=== PATIENT | male | born 1960 ===

== ENCOUNTER 2017-09-28 06:28 | Emergency (ER) | payer OTHER ==
[2017-09-28 06:53] VITALS: BP 143/103
--- NOTE | 2017-09-28 07:19 | EDM.PDOC ---
ED HPI GENERAL MEDICAL PROBLEM - General Chief Complaint: ENT Problem Stated Complaint: BLEEDING FROM RT EAR Time Seen by Provider: 09/28/17 07:02 Source of Information: Reports: Patient, Family (spouse) History Limitations: Reports: No Limitations - History of Present Illness INITIAL COMMENTS - FREE TEXT/NARRATIVE: Source of bleeding is unclear. He states he feels a fullness in his right ear but his hearing is normal. He states started bleeding in the middle the night and no at which way he laid he continued to have blood in his ear. For a while it did clog up with blood. Of note he is chronically anticoagulated with Coumadin because of artificial heart valve. Last INR reportedly was 6.3. He therefore stopped his Coumadin yesterday. Denies any bleeding from his gingiva or his nose or new genitourinary tract. States he may have scratched his ear canal. 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.) - Related Data Allergies Allergy/AdvReac Type Severity Reaction Status Date / Time No Known Allergies Allergy Verified 05/16/17 09:35 Home Meds: Home Meds Acetaminophen [Tylenol] 325 - 650 mg PO Q4HR PRN 04/15/17 [History] Albuterol [Proventil HFA] 2 puff INH Q4H 04/15/17 [History] Albuterol/Ipratropium [DuoNeb 3.0-0.5 MG/3 ML] 3 ml IH QID PRN 04/15/17 [History ] Aspirin [Halfprin] 81 mg PO DAILY 04/15/17 [History] Furosemide [Lasix] 40 mg PO DAILY 04/15/17 [History] Metoprolol Tartrate 25 mg PO BID 04/15/17 [History] Potassium Chloride [K-Tab ER] 1 tab PO DAILY 04/15/17 [History] Tiotropium [place] [Spiriva Respimat] 2 puff IH DAILY 04/15/17 [History] Warfarin Dosing [Coumadin Ask] 1 tab PO DAILY 04/15/17 [History] Past Medical History HEENT History: Reports: Impaired Vision Cardiovascular History: Reports: Heart Failure, Heart Murmur, Heart Valve Replacement, High Cholesterol, Hypertension, Other (See Below) Respiratory History: Reports: SOB, Other (See Below) Other Respiratory History: mold infection in lungs and had Hantavirus in 2016 Gastrointestinal History: Reports: Other (See Below) Other Gastrointestinal History: anal abcess, LLQ pain, c diff Genitourinary History: Reports: Renal Calculus 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 Musculoskeletal History: Reports: Back Pain, Chronic Neurological History: Reports: Neuropathy, Peripheral Psychiatric History: Reports: None, Other (See Below) Other Psychiatric History: malaise, fatigue Endocrine/Metabolic History: Reports: None Hematologic History: Reports: Anemia Immunologic History: Reports: None, Other (See Below) Other Immunologic History: hypokalemia Oncologic (Cancer) History: Reports: None Dermatologic History: Reports: None - Infectious Disease History Infectious Disease History: Reports: C-Difficile, Other (See Below) Other Infectious Disease History: hantavirus - Past Surgical History Head Surgeries/Procedures: Reports: None Cardiovascular Surgical History: Reports: None, Other (See Below) GI Surgical History: Reports: Hernia Repair/Other Endocrine Surgical History: Reports: None Musculoskeletal Surgical History: Reports: Arthroscopic Knee Oncologic Surgical History: Reports: None Dermatological Surgical History: Reports: None - Past Imaging History Past Imaging History: Reports: None Social & Family History - Family History Family Medical History: Noncontributory - Tobacco Use Smoking Status *Q: Never Smoker - Caffeine Use Caffeine Use: Reports: None - Living Situation & Occupation Occupation: Employed ED ROS ENT - Review of Systems Review Of Systems: See Below Constitutional: Reports: Malaise, Fatigue (Chronically). Denies: Fever, Chills HEENT: Reports: Ear Discharge (Bleeding from his right ear most of the night.). Denies: Ear Pain, Eye Discharge, Eye Pain, Glasses, Hearing Loss, Nosebleed, Nose Pain, Rhinitis, Sinus Problem, Throat Pain, Throat Swelling Respiratory: Reports: No Symptoms Cardiovascular: Reports: Blood Pressure Problem, Other (Chronically hypertensive has had an aortic valve replacement.). Denies: Chest Pain ED EXAM, ENT - Physical Exam Exam: See Below Exam Limited By: No Limitations General Appearance: Alert, WD/WN, No Apparent Distress Ears: Hearing Grossly Normal, Canal Blood (There is a fair amount of bright red blood up against the eardrum on the right side there is dried blood on the floor of the ear canal. No active source of bleeding is identified.). No: TM Bulging, TM Dullness, TM Erythema, TM Fluid Course - Vital Signs Last Recorded V/S: Last Vital Signs Temp 36.2 C 09/28/17 06:47 Pulse 85 09/28/17 06:47 Resp 18 09/28/17 06:47 BP 143/103 H 09/28/17 06:47 Pulse Ox 98 09/28/17 06:47 - Orders/Labs/Meds Labs: Laboratory Tests 09/28/17 Range/Units 07:05 PT 30.3 H (9.5-12.1) SECONDS INR 2.84 Meds: Medications Discontinued Medications Generic Name Dose Route Start Last Admin Trade Name Freq PRN Reason Stop Dose Admin Neomycin/Polymyxin/Hydrocortisone 2.5 ml 09/28/17 07:28 09/28/17 07:53 Cortisporin Otic Susp EARRT 09/28/17 07:29 2 drop ONETIME ONE Administration - Radiology Interpretation Free Text/Narrative:: 57-year-old male presents to the ED with bleeding from his right ear canal. The tympanic membrane appears intact however his covered with bright red blood. I cauterized the floor of the ear canal but which I believe to be the source of the bleeding with silver nitrate. I will irrigate the ear gently with some peroxide warm water and see if there is any further active bleeding source. Of note primary problem is he is on Coumadin last INR was 6.3. I Coumadin was placed on hold yesterday. It is to be left on hold today as well. Dr. Bell had ordered a PT/INR test which is not yet completed. - Re-Assessments/Exams Free Text/Narrative Re-Assessment/Exam: 09/28/17 07:29 on second look at there was a little more active bleeding from further up in the ear canal close to the tympanic membrane. I was able to reach in and cauterize this area with silver nitrate and has no further blood in the ear canal at the time of discharge. I'm going to place him on some Cortisporin optic drops 2 drops to the ear 3 times daily for the next 3 days to prevent any further infection of excoriated ear canal. Departure - Departure Time of Disposition: 07:30 Disposition: Home, Self-Care 01 Condition: Good Clinical Impression: Otitis externa hemorrhagica Qualifiers: Chronicity: acute Laterality: right Qualified Code(s): H60.321 - Hemorrhagic otitis externa, right ear - Discharge Information *PRESCRIPTION DRUG MONITORING PROGRAM REVIEWED*: Not Applicable *COPY OF PRESCRIPTION DRUG MONITORING REPORT IN PATIENT ELIZ: Not Applicable Instructions: Otitis Externa, [id number] Referrals: Madonna Bejarano PA-C [Primary Care Provider] - Forms: ED Department Discharge Additional Instructions: Evaluation the emergency room this morning in regards to active bleeding from your right ear canal. The exact reason for the bleeding is unclear. There are excoriations and dryness of the canal appreciated in a couple of spots. I was able to bring the bleeding under control with silver nitrate application to the bleeding sites. Your Coumadin time being elevated is no doubt contributing to the active bleeding. He did not start the bleeding however. Suggest use of Cortisporin optic drops 2 drops to the right ear 3 times daily for the next 3 days to clear up inflammation of the ear canal and prevent further bleeding. INR today was 2.84 which is considered just above therapeutic values. Therefore resume Coumadin today as you have in the past.
[2017-09-28] MEDS ORDERED: Hydrocortisone/Neomycin/Polymyxin B Otic Susp 10 ML Bottle EARRT ONE (07:28)
== END 2017-09-28 07:55 | disposition home or self-care (01) ==
LOC: JD.ED 06:28
DX: H60.321 Hemorrhagic otitis externa, right ear (principal); I11.0 Hypertensive heart disease with heart failure; I50.9 Heart failure, unspecified; Z87.442 Personal history of urinary calculi; Z79.82 Long term (current) use of aspirin; Z79.899 Other long term (current) drug therapy; Z79.01 Long term (current) use of anticoagulants
CPT/HCPCS: 36415; 85610; 99283; A9270